=== PATIENT | female | born 1975 | race Two or more races ===

== ENCOUNTER 2018-12-25 20:52 | Emergency (ER) | payer BC ==
[~2018-12-25] VITALS: Ht 157.5 cm; Wt 53.5 kg
--- NOTE | 2018-12-25 22:00 | NUR ---
PATIENT IN ROOM WITH NO DISTRESS NOTED. INTERACTING WITH FAMILY
--- NOTE | 2018-12-25 22:34 | NUR ---
Patient discharged to home in stable conditon WITH FAMILY TAKING PATIENT HOME. Written and verbal after care instructions given. Patient verbalizes understanding of instructions. WALKED OUT OF ER WITH NO DISTRESS NOTED
[2018-12-25 22:35] VITALS: BP 115/75
== END 2018-12-25 22:35 | disposition home or self-care (01) ==
LOC: ER 20:54
DX: R07.89 Other chest pain (principal); R11.0 Nausea; F17.200 Nicotine dependence, unspecified, uncomplicated
CPT/HCPCS: 36415; 70030-TC; 84443; 93005; A4663